=== PATIENT | female | born 1970 | race Caucasian/White ===

== ENCOUNTER 2019-08-28 11:42 | Emergency (ER) | payer SELFPAY ==
[2019-08-28] MEDS ORDERED: NA CHLORIDE 0.9% 1,000 ML ONE (12:05)
[2019-08-28 12:11] LABS: Absolute Lymphocytes (CBC) 2.2 K/uL (0.7-4.9); Hematocrit 49.5 % (36.0-45.0); Lymphocytes % 28.4 % (15.3-44.8); MPV 8.6 fL (7.6-11.3)
[2019-08-28 12:13] LABS: Urine Blood 3+ (NEG); Urine Glucose NEGATIVE (NEG); Urine Protein NEGATIVE (NEG); Urine pH 6.5 (5.0-7.0)
[2019-08-28 12:14] LABS: Protime INR 0.91
[2019-08-28 12:26] LABS: Barbiturates NEGATIVE (NEGATIVE); Benzodiazepines NEGATIVE (NEGATIVE); Cocaine NEGATIVE (NEGATIVE); METHAMPHETAM NEGATIVE (NEGATIVE); Methadone NEGATIVE (NEGATIVE); Opiates NEGATIVE (NEGATIVE); Phencyclidine NEGATIVE (NEGATIVE); THC Cannibis POSITIVE (NEGATIVE)
[2019-08-28 12:26] LABS: ALT/SGPT 134 U/L (12-78); AST/SGOT 163 U/L (15-37); Alkaline Phosphatase 115 U/L (45-117); BUN Blood Urea Nitrogen 11 mg/dL (7-18); Bicarbonate 29 mmol/L (21-32); Bilirubin Direct 0.1 mg/dL (0-0.2); Bilirubin Total 0.3 mg/dL (0.2-1.0); Glucose Level 112 mg/dL (74-106); Potassium 3.8 mmol/L (3.5-5.1); Sodium Level 143 mmol/L (136-145)
[2019-08-28] MEDS ORDERED: KETAMINE HCL 500 MG/5 ML VIAL ONE (12:32)
--- NOTE | 2019-08-28 13:09 | RAD REPORT ---
EXAM DESCRIPTION: CT - CTHCSPWOC - 08/28/2019 12:48 pm CLINICAL HISTORY: Trauma, head and neck injury. fall, facial trauma, intoxicated COMPARISON: No comparisons TECHNIQUE: Axial 5 mm thick images of the head were obtained. Axial 2 mm thick images of the cervical spine were obtained with sagittal and coronal reconstruction images generated and reviewed. All CT scans are performed using dose optimization technique as appropriate and may include automated exposure control or mA/KV adjustment according to patient size. FINDINGS: CT HEAD WITHOUT CONTRAST: No acute hemorrhage, hydrocephalus or extra-axial collection is identified.No areas of brain edema or midline shift. The paranasal sinuses and mastoids are clear.The calvarium is intact. CT CERVICAL SPINE WITHOUT CONTRAST: Motion degradation is present lower cervical spine. No gross fracture or subluxation.No prevertebral soft tissues swelling is identified. IMPRESSION: No acute intracranial findings. Motion degradation is present lower cervical spine limiting assessment. Within this limitation, no gr oss acute finding evident.
--- NOTE | 2019-08-28 13:10 | RAD REPORT ---
EXAM DESCRIPTION: CT - CTFB CLINICAL HISTORY: possible nasal fracture;Facial pain;Deformity COMPARISON: No comparisons TECHNIQUE: Axial 2 mm thick images of the face were obtained with sagittal and coronal reconstructio n images. All CT scans are performed using dose optimization technique as appropriate and may include automated exposure control or mA/KV adjustment according to patient size. FINDINGS: Mild nasal bone fracture is seen with adjacent soft tissue swelling. No additional facial fracture identified.The mandible is intact. The globes and orbital contents are grossly unremarkable.The paranasal sinuses and mastoids are clear except for a small mucous retention cyst or polyp in the inferior right maxillary antrum. IMPRESSION: Mild nasal bone fracture.
--- NOTE | 2019-08-28 13:14 | EDPHYS ---
Physician Documentation [facility] Name: Sara Gr Age: 49 yrs Sex: Female : 1970 Arrival Date: 08/28/2019 Time: 11:43 Bed 3 Private MD: ED Physician Nakul Key HPI: 08/28 11:51 This 49 yrs old Female presents to ER via Unassigned with complaints of rn facial trauma, intoxication. 11:51 The patient or guardian reports injury, swelling. The complaints affect the nose. rn Onset: The symptoms/episode began/occurred at an unknown time. Severity of symptoms: At their worst the symptoms were mild, in the emergency department the symptoms are unchanged. The patient has not experienced similar symptoms in the past. The patient has not recently seen a physician. Per EMS, boyfriend called 911 for minimal responsiveness, told EMS had been smoking marijuana and drinking vodka. EMS noticed blood on step of truck and patient with facial trauma, did not recall any trauma, then fell face forward in sand. Denies pain to face but has nosebleed and nose swelling. No chest pain/sob/abd pain/pelvic pain/extremity injury or pain. . Historical: - Allergies: 12:54 No Known Allergies; sv - Home Meds: 13:05 Unable to obtain [Active]; sv - PMHx: 13:05 Unable to obtain; sv - PSHx: 13:05 Unable to obtain; sv - Immunization history:: Adult Immunizations unknown. - Social history:: Smoking status: unknown. - Family history:: not pertinent. - Ebola Screening: : Unable to complete screening because. - Hospitalizations: : No recent hospitalization is reported. ROS: 11:51 Constitutional: Negative for fever, chills, and weight loss, Eyes: Negative for injury, rn pain, redness, and discharge, ENT: + injury to nose Neck: Negative for injury, pain, and swelling, Cardiovascular: Negative for chest pain, palpitations, and edema, Respiratory: Negative for shortness of breath, cough, wheezing, and pleuritic chest pain, Abdomen/GI: Negative for abdominal pain, nausea, vomiting, diarrhea, and constipation, Back: Negative for injury and pain, MS/Extremity: Negative for injury and deformity, Skin: Negative for injury, rash, and discoloration, Neuro: Negative for headache, weakness, numbness, tingling, and seizure. Exam: 11:51 Constitutional: This is a well developed, well nourished patient who is awake, alert, rn emotional and yelling, tearful. Head/Face: + swelling to nasal bridge with dry blood in bilateral nares, no septal hematoma, no oral laceration. Eyes: Pupils equal round and reactive to light, extra-ocular motions intact. Lids and lashes normal. Conjunctiva and sclera are non-icteric and not injected. Cornea within normal limits. Periorbital areas with no swelling, redness, or edema. ENT: No oral laceration or active bleeding, teeth aligned and patient states feels normal oral stability with jaw clench Neck: Trachea midline, no thyromegaly or masses palpated, and no cervical lymphadenopathy. Supple, full range of motion without nuchal rigidity, or vertebral point tenderness. No Meningismus. Cardiovascular: Regular rate and rhythm. No pulse deficits. Respiratory: No increased work of breathing, no retractions or nasal flaring. Abdomen/GI: soft, non-tender Back: No spinal tenderness. No costovertebral tenderness. Full range of motion. MS/ Extremity: Pulses equal, no cyanosis. Neurovascular intact. Full, normal range of motion. Equal circumference. Neuro: Awake and alert, GCS 15, oriented to person, place, time, and situation. Cranial nerves II-XII grossly intact. Motor strength 5/5 in all extremities. Sensory grossly intact. Cerebellar exam normal. Vital Signs: 12:07 BP 133 / 70; Pulse 107; Resp 14; Temp 97.4; Pulse Ox 97% on R/A; sg 12:28 Weight 83.91 kg; ss 12:50 BP 132 / 69; Pulse 88; Resp 14; Pulse Ox 99% on R/A; sg Zafar Coma Score: 11:51 Eye Response: spontaneous(4). Verbal Response: oriented(5). Motor Response: obeys rn commands(6). Total: 15. 13:12 Eye Response: spontaneous(4). Verbal Response: oriented(5). Motor Response: obeys rn commands(6). Total: 15. MDM: 11:43 Patient medically screened. rn 12:30 ED course: Pt agitated, ran out of back door, got into lumber driver seat, pulled rn out by hospital staff, police had already been called, arrived, decision made by them to arrest her. I recommended medical clearance given intoxication and head trauma. Pt combative, will sedate to obtain imaging. . 13:12 Differential diagnosis: Contusion of Concussion cerebral contusion, nasal fracture. rn Data reviewed: vital signs, nurses notes, lab test result(s), EKG, radiologic studies, and as a result, I will discharge patient. Counseling: I had a detailed discussion with the patient and/or guardian regarding: the historical points, exam findings, and any diagnostic results supporting the discharge/admit diagnosis, lab results, radiology results, the need for outpatient follow up, to return to the emergency department if symptoms worsen or persist or if there are any questions or concerns that arise at home. Response to treatment: the patient's symptoms have markedly improved after treatment, and as a result, I will discharge patient. ED course: CT head/cspine neg, ct face mild nasal fracture, will dc to longterm. . 08/28 11:44 Order name: Acetaminophen rn 08/28 11:44 Order name: Basic Metabolic Panel rn 08/28 11:44 Order name: CBC with Diff; Complete Time: 12:29 rn 08/28 11:44 Order name: ETOH Level; Complete Time: 12: rn 08/28 11:44 Order name: Hepatic Function; Complete Time: 12: 08/28 11:44 Order name: PT-INR; Complete Time: 12:29 rn 08/28 11:44 Order name: CT Head C Spine; Complete Time: 13: rn 08/28 11:44 Order name: CT Facial Bones W/O Con; Complete Time: 13: rn 08/28 11:44 Order name: Ptt, Activated; Complete Time: 12:29 rn 08/28 11:44 Order name: Salicylate; Complete Time: 13: rn 08/28 11:44 Order name: Urine Drug Screen; Complete Time: 12:29 rn 08/28 11:45 Order name: Acetaminophen Level; Complete Time: 12:29 EDMA 08/28 11:45 Order name: Basic Metabolic Panel; Complete Time: 12:29 EDMA 08/28 12:00 Order name: Urine Dipstick--Ancillary (enter results); Complete Time: 12:29 wi 08/28 11:44 Order name: IV Saline Lock; Complete Time: 13:07 rn 08/28 11:44 Order name: Labs collected and sent; Complete Time: 13: rn 08/28 13:22 Order name: Restraint:Violent/Self Destructive (Adult:18yo or >); Complete Time: 13:22 sv Administered Medications: 12:30 Drug: Ketamine 50 mg Route: IVP; Site: left antecubital; sv 13:07 Follow up: Response: No adverse reaction sv Disposition: 08/28/19 13:13 Discharged to Home. Impression: Alcohol abuse with intoxication, Fracture of nasal bones, Restlessness and agitation. - Condition is Stable. - Discharge Instructions: Alcohol Intoxication, Nasal Fracture. - Prescriptions for Augmentin 875- 125 mg Oral Tablet - take 1 tablet by ORAL route every 12 hours for 10 days; 20 tablet. - Medication Reconciliation Form, Thank You Letter, Antibiotic Education, Prescription Opioid Use form. - Follow up: Hannah Pretty MD; When: 1 week; Reason: Recheck today's complaints, Re-evaluation by your physician. - Problem is new. - Symptoms have improved. Signatures: Dispatcher [employer] EDMA Hannah Beaver, CHRIS RN Nakul Merlos MD MD furnace cleaner: (The following items were deleted from the chart) 13:39 13:13 08/28/2019 13:13 Discharged to Home. Impression: Alcohol abuse with intoxication; sv Fracture of nasal bones; Restlessness and agitation. Condition is Stable. Forms are Medication Reconciliation Form, Thank You Letter, Antibiotic Education, Prescription Opioid Use. Follow up: Hannah Pretty; When: 1 week; Reason: Recheck today's complaints, Re-evaluation by your physician. Problem is new. Symptoms have improved. rn
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
[2019-08-28 14:01] VITALS: TEMP 97.4
[2019-08-28 14:03] VITALS: BP 132/69; O2SAT 99
[2019-09-01] MEDS ORDERED: POTASSIUM 25 MEQ EFFERV TAB ONE (07:06)
== END 2019-08-28 13:39 | disposition home or self-care (01) ==
LOC: ER 11:42
DX: S02.2XXA Fracture of nasal bones, initial encounter for closed fracture (principal); F10.129 Alcohol abuse with intoxication, unspecified; R45.1 Restlessness and agitation; W19.XXXA Unspecified fall, initial encounter; Y93.89 Activity, other specified; Y92.89 Other specified places as the place of occurrence of the external cause
CPT/HCPCS: 36415; 70450; 70486; 72125; 76377; 80048; 80076; 80307; 80320; 80329; 81003; 85025; 85610; 85730; 96374; 99284; J7030